=== PATIENT | male | born 1950 | race Caucasian/White ===

== ENCOUNTER 2021-01-09 21:30 | Emergency (ER) | payer BC, MEDICARE ==
[~2021-01-09] VITALS: Ht 182.9 cm; Wt 111.1 kg
[2021-01-09] MEDS ORDERED: ALLOPURINOL 10100 M1 PO (21:53)
[2021-01-09] MEDS ORDERED: BETA BLOCKER (21:54)
[2021-01-09] MEDS ORDERED: DILTIAZEM ER240 M1 PO (21:54)
[2021-01-09] MEDS ORDERED: PLAVIX 75 MG TA75 MG PO (21:55)
[2021-01-09] MEDS ORDERED: GLUMETZA500 PO (21:57)
[2021-01-09] MEDS ORDERED: ADMELOG SO100 UNIT/1 SUBQ (21:58)
[2021-01-09] MEDS ORDERED: OZEMPIC1 MG/0.71 SUBQ (21:59)
[2021-01-09] MEDS ORDERED: LEVEMIR100 UNIT/1 SUBQ (21:59)
[2021-01-09] MEDS ORDERED: STRATTERA100 MG PO (22:00)
[2021-01-09 23:09] LABS: ABSOLUTE BASOPHILS 0.1 thou/uL (0.0-0.2); ABSOLUTE EOSINOPHILS 0.1 thou/uL (0.0-0.7); ABSOLUTE LYMPHOCYTES 1.3 thou/uL (0.8-5.3); ABSOLUTE MONOCYTES 0.9 thou/uL (0.0-1.2); ABSOLUTE NEUTROPHILS 6.7 thou/uL (1.6-8.1); BASOPHILS 0.9 %; EOSINOPHILS 1.4 %; HEMATOCRIT 39.9 % (42.0-52.0); LYMPHOCYTES 14.5 %; MCH 30.2 pg (26.0-34.0); MCHC 35.1 g/dL (28.0-37.0); MCV 86.2 fL (80.0-100.0); MONOCYTES 9.6 %; MPV 7.8 fl. (7.2-11.1); NUCLEATED RBCS 0 /100WBC; PLATELET COUNT* 275 thou/uL (150-400); POLYS 73.6 %; RBC 4.62 mil/uL (4.50-6.00); RDW-CV 13.6 % (10.5-14.5); WBC 9.1 thou/uL (4.0-11.0)
[2021-01-09 23:15] LABS: CALCIUM 9.2 mg/dL (8.5-10.1); CREATININE 1.2 mg/dL (0.6-1.3); POTASSIUM 3.7 mmol/L (3.5-5.1)
[2021-01-09 23:19] LABS: ALBUMIN 3.6 g/dL (3.4-5.0); TOTAL BILIRUBIN 0.4 mg/dL (<0.1-1.0); TOTAL PROTEIN 6.8 g/dL (6.4-8.2)
[2021-01-10 01:12] VITALS: BP 157/91
--- NOTE | 2021-01-10 11:41 | EKG ---
[place] [address] ELECTROCARDIOGRAM REPORT Name: SANDEEP LUJAN [facility] [id number] Admission: 01/09/21 Attend Phys: Discharge: 01/10/21 Date of : 52 Date of Service: 01/09/212227 Report #: [id number] THIS REPORT FOR: //name// [facility] ED Test Date: 2021-01-09 Test Time: 22:28:45 Pat Name: SANDEEP LUJAN Department: Room: Gender: Injection Molder: : 1950 Requested By: Diane Mckeon Order Number: [id number] MD: Sandeep Mccloud Measurements Intervals [place] Rate: 83 P: 23 ME: 166 QRS: -32 QRSD: 105 T: 25 QT: 404 QTc: 475 Interpretive Statements Sinus rhythm Left axis deviation Abnormal R-wave progression, early transition No previous ECG available for comparison Electronically Signed On 01-10-2021 11:40:54 CDT by Sandeep Mccloud [email or web address] <ELECTRONICALLY SIGNED> By: Sandeep Mccloud MD, [facility] 01/10/21 [id number] Sandeep Mccloud MD, [facility] /EPI
== END 2021-01-10 01:13 | disposition home or self-care (01) ==
LOC: M.ERS 21:30
PROVIDERS: Emergency Medicine
DX: M62.838 Other muscle spasm (principal); I10 Essential (primary) hypertension; E11.40 Type 2 diabetes mellitus with diabetic neuropathy, unspecified; G47.30 Sleep apnea, unspecified

== ENCOUNTER 2021-02-03 15:39 | Emergency (ER) | payer BC, MEDICARE ==
[~2021-02-03] VITALS: Ht 182.9 cm; Wt 100.7 kg
[~2021-02-03 15:39] MED LIST: ADMELOG SO100 UNIT/1 SUBQ; ALLOPURINOL 10100 M1 PO; BETA BLOCKER; DILTIAZEM ER240 M1 PO; GLUMETZA500 PO; LEVEMIR100 UNIT/1 SUBQ; OZEMPIC1 MG/0.71 SUBQ; PLAVIX 75 MG TA75 MG PO; STRATTERA100 MG PO
[2021-02-03] MEDS ORDERED: CLONIDINE HCL0.1 M1 PO (16:11)
[2021-02-03] MEDS ORDERED: HYDROCODON-ACE1 EAC7 PO (18:18)
[2021-02-03] MEDS ORDERED: CEPHALEXIN500 MG PO (18:18)
[2021-02-03] MEDS ORDERED: BACTRIM DS TAB1 EACH PO (18:18)
[2021-02-03 18:31] VITALS: BP 125/89
== END 2021-02-03 18:32 | disposition home or self-care (01) ==
LOC: M.ERS 15:39
DX: N49.2 Inflammatory disorders of scrotum (principal); I10 Essential (primary) hypertension; E11.40 Type 2 diabetes mellitus with diabetic neuropathy, unspecified; G47.30 Sleep apnea, unspecified; Z79.4 Long term (current) use of insulin